=== PATIENT | female | born 1970 | race Caucasian/White ===

== ENCOUNTER 2021-06-02 06:59 | Day surgery (SDC) | payer OTHER ==
[2021-06-02] VITALS (10 sets, daily range): BP systolic 101–139; BP diastolic 51–71
[~2021-06-02] VITALS: Ht 154.9 cm; Wt 48.0 kg
--- NOTE | 2021-06-02 07:15 | NUR ---
PATIENT TO ROOM 291 AMBULATORY WITH STEADY GAIT. ADMISSION ASSESSMENT COMPLETED AT THIS TIME. CONSENT OBTAINED. VS OBTAINED DR RASMUSSEN NOTIFIED. ORDERS RECEIVED. ORIENTED PATIENT TO ROOM AND UNIT. CALL LIGHT IN [facility]. WILL CONTINUE TO MONITOR.
[2021-06-02 08:15] LABS: HEMATOCRIT 41.5 % (37.0-47.0); HEMOGLOBIN 13.1 g/dl (12.0-16.0); IMMATURE GRANULOCYTES 0.2 % (0.0-5.0); MEAN CELL VOLUME 76.3 fL CALC (80.0-100.0); MEAN CORPUSCULAR HGB 24.1 pG CALC (26.0-32.0); MEAN CORPUSCULAR HGB CONC 31.6 g/dL CAL (32.0-36.0); NEUT# 8.01 thou/uL (2.00-7.15); RED BLOOD COUNT 5.44 mill/uL (4.20-5.60); RED CELL DISTRI WIDTH 15.5 % (11.5-15.5)
[2021-06-02 10:07] LABS: ALBUMIN 3.4 g/dL (3.2-5.0); ALKALINE PHOSPHATASE 50 u/l (38-126); ANION GAP 9 (6-22 (CALC)); BILIRUBIN, TOTAL 0.6 mg/dL (0.0-1.4); BUN 9 mg/dL (7-17); BUN/CREATININE RATIO 22 (12-20 (CALC)); CARBON DIOXIDE 28 mmol/l (22-30); CHLORIDE 106 mmol/l (95-108); CREATININE 0.4 mg/dL (0.5-1.0); GFR > 60 ML/MIN (>=60 (CALC)); GFR FOR AFR.AMER. > 60 ML/MIN (>=60 (CALC)); POTASSIUM 3.8 mmol/l (3.5-5.1); SGOT/AST 19 u/l (14-36); SODIUM 139 mmol/l (137-146); TOTAL PROTEIN 6.3 g/dL (6.3-8.2)
[2021-06-02] MEDS ORDERED: NALTREXONE50 MG PO (17:08)
[2021-06-02] MEDS ORDERED: CLONIDINE0.1 MG PO (17:08)
[2021-06-02] MEDS ORDERED: KLONOPIN0.5 MG PO ×2 (17:10)
--- NOTE | 2021-06-02 19:30 | NUR ---
REPORT FROM STEPHEN PIZANO. ASSUMED PT CARE.
--- NOTE | 2021-06-02 19:55 | NUR ---
PT NOTED SITTING UP ON BSC WITH ELASTIC ASSEMBLER PRESENT IN ROOM. PT DROWSY, BUT ORIENTED X3 AND ABLE TO MAKE NEEDS KNOWN. PT VOIDED WITHOUT DIFFICULTY. ASSISTED BACK INTO BED. ASSESSMENT COMPLETE. PT DENIES ANY PAIN OR DISCOMFORT. NO APPARENT RESPIRATORY DISTRESS NOTED. CALL LIGHT WITHIN REACH. WILL CONTINUE TO MONITOR.
--- NOTE | 2021-06-03 00:54 | NUR ---
PT RESTING IN BED WITH EYES CLOSED. NO APPARENT DISTRESS NOTED. RESPIRATIONS EVEN AND UNLABORED. CALL LIGHT WITHIN REACH. WILL CONTINUE TO MONITOR.
[2021-06-03 03:31] VITALS: BP 118/63
--- NOTE | 2021-06-03 04:58 | NUR ---
PT UP TO BATHROOM; MULTIPLE BM THROUGH-OUT SHIFT; NO COMPLAINTS OR CONCERNS VOICED; PT TOOK PO MEDS WELL; CALL [facility] WITHIN REACH; WILL CONTINUE TO MONITOR.
[2021-06-03 07:18] LABS: HEMOGLOBIN 12.1 g/dl (12.0-16.0); IMMATURE GRANULOCYTES 0.1 % (0.0-5.0); MEAN CELL VOLUME 76.3 fL CALC (80.0-100.0); MEAN CORPUSCULAR HGB 24.3 pG CALC (26.0-32.0); MEAN CORPUSCULAR HGB CONC 31.8 g/dL CAL (32.0-36.0); NEUT# 9.66 thou/uL (2.00-7.15); RED BLOOD COUNT 4.98 mill/uL (4.20-5.60); RED CELL DISTRI WIDTH 15.7 % (11.5-15.5)
--- NOTE | 2021-06-03 07:23 | NUR ---
REPORT RECIVED FROM JERICA FUENTES. ASSUMED CARE
[2021-06-03 07:26] LABS: ALBUMIN 4.1 g/dL (3.2-5.0); ALKALINE PHOSPHATASE 63 u/l (38-126); ANION GAP 17 (6-22 (CALC)); BILIRUBIN, TOTAL 0.9 mg/dL (0.0-1.4); BUN 8 mg/dL (7-17); BUN/CREATININE RATIO 20 (12-20 (CALC)); CARBON DIOXIDE 24 mmol/l (22-30); CHLORIDE 109 mmol/l (95-108); CREATININE 0.4 mg/dL (0.5-1.0); GFR > 60 ML/MIN (>=60 (CALC)); GFR FOR AFR.AMER. > 60 ML/MIN (>=60 (CALC)); MAGNESIUM 2.3 mg/dL (1.6-2.3); POTASSIUM 4.2 mmol/l (3.5-5.1); SGOT/AST 29 u/l (14-36); SODIUM 146 mmol/l (137-146); TOTAL PROTEIN 7.4 g/dL (6.3-8.2)
[2021-06-03 08:00] VITALS: BP 95/45
--- NOTE | 2021-06-03 08:00 | NUR ---
ASSESSMENT COMPLETED, SEE DOCUMENTATION. B/P LOW, CLONIDINE HELD. NO COMPLAINTS VOICED. RESTING QUIETLY.
[2021-06-03] MEDS ORDERED: CLONAZEPAM1 M1 PO (09:15)
[2021-06-03 12:00] VITALS: BP 116/54
--- NOTE | 2021-06-03 12:30 | NUR ---
PT NOTED TO HAVE SOME SLURRING WHEN SHE SPEAKS. SHE IS ALEERT AND ORIENTED X 3. NO COMPLAINTS VOICED. PT IS UP IN THE SHOWER WITH STAFF ASSISTANCE. PT INDICATED SHE WILL EAT LUNCH FOLLOWING HER SHOWER. NO S/S OF DISTRESS NOTED. WILL MONITOR
--- NOTE | 2021-06-03 14:35 | NUR ---
pt discharged home with s/o. pt went by w/c downstairs, escorted by physician. discharge instructions reviewed with pt, pt verbalized understanding to instruction given. prescription given as per d/c orders. pt stable at discharge
== END 2021-06-03 14:53 | disposition home or self-care (01) | DRG 897 ==
LOC: ANR 06:59 → MS2 07:20 → ANR 10:32
PROVIDERS: ATTEND Anesthesiology
DX: F11.20 Opioid dependence, uncomplicated (principal)
CPT/HCPCS: J2354; J3475